=== PATIENT | female | born 1985 | race Caucasian/White ===

== ENCOUNTER 2016-06-20 | Inpatient (IN) | payer BC ==
--- OUTSIDE RECORDS SUMMARY | 2016-06-20 00:03 | XMS REPORT | Continuity of Care Document ---
:1985 Author Organization [facility] ([facility]) Address [address] [place] [id number] Phone [phone] Care Team Providers Name Role Phone Provider, No-Primary Care Primary Care Provider Unavailable Source Comments This disclosure is being made pursuant to the Care Everywhere program, applicable federal and state laws, and may not contain all informaitonavailable regarding this patient.[facility] ([facility]) Active Allergies and Adverse Reactions No Known Allergies Current Medications Prescription Sig. Disp. 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 Family history of intellectual disabilities 03/07/2016 Overview: Affecting males in partner's family Currently Estimated Date of Delivery Comments Yes 06/15/2016 Based on Last Menstrual Period Most Recent Encounters Date Type Specialty Providers Description 04/17/2016 Hospital Encounter Pediatric Marissa, Chief Comp: Patient Nephrology MD Manisha Reported Reason For Visit 04/17/2016 Office Visit Maternal Flor Watts I, Chief Comp: Patient Medicine Reported Reason For Visit 04/17/2016 Hospital Encounter Obstetrics Flor Watts I, Dx: renal anomaly, single gestation 04/17/2016 Telephone Gynecology José Miguel Galvan MD Chief Comp: Appointment Info Social History Tobacco Use Types Packs/Day Years Used Date Never Smoker Smokeless Tobacco: Never Used Alcohol Use Drinks/Week oz/Week Comments No Last Filed Vital Signs Vital Sign Reading Time Taken Blood Pressure 129/69 02/21/2016 9:27 AM CONTINUOUS IMPROVEMENT ANALYST Pulse 86 02/21/2016 9:27 AM CONTINUOUS IMPROVEMENT ANALYST Temperature 36.5 C (97.7 F) 02/21/2016 8:39 AM CONTINUOUS IMPROVEMENT ANALYST Respiratory Rate - - Height 1.676 m (5' 6") 02/21/2016 9:27 AM CONTINUOUS IMPROVEMENT ANALYST Weight 96.2 kg (212 lb 1.3 oz) 02/21/2016 9:27 AM CONTINUOUS IMPROVEMENT ANALYST Body Mass Index 34.25 02/21/2016 9:27 AM CONTINUOUS IMPROVEMENT ANALYST Oxygen Saturation - - Plan of Care Health Maintenance Due Date Last Done Comments Hepatitis B Vaccine (1 of 3 - Primary Series) 1985 Tdap Vaccine 02/11/1996 Lipid Disorder Screening 2003 MMR Vaccine 2003 Td Vaccine 2003 Varicella Vaccine (1 of 2 - Adult - No Evidence of 2003 Immunity) Cervical Cancer Screening 2015 Influenza Vaccine: Seasonal (Season Ended) 2016 Results from Last 3 Months ASBESTOS WIRE FINISHER/ DIAGNOSIS ULTRASOUND (04/17/2016 11:40 AM) Narrative Obstetric Ultrasound Report Limited Scan Referral from: Dr. Judy reyes [facility] [address] Department of Obstetrics & Gynecology [place], [id number] [id number] OB Clinic IVF/ Endocrine PATIENT INFORMATION: Name: ANKITA BELTRE#: [id number] Age:31 y/oExam Date: 04/17/2016 :1985Visit #: 2 LMP:09/09/2015 Location: Diagnosis & Treatment Unit # Fetuses: 1 INDICATION:Left pelvic kidney. Negative integrated screen. Check growth. DATING: Assigned GA GA by LMPGA by US (ARLET)ARLET 31 7 wks 31 4/7 wks 31 4/7 wks 06/15/16 BIOMETRY: BPD: 82.2 mm33 0/7 wksHC:301.6 mm 33 3/7 wks(59%) (69%) Femur: 57.0 mm29 6/7 wksAC:292.1 mm 33 1/7 wks(77%) (20%) EFW: 1936 gms4 lbs 4 oz (69%) Lat Ventricles: 7.1 mm Heart Rate: 144 bpm FL/AC:0.2FL/BPD: 0.69 Left Kidney:[id number] PRESENTATION/CORD/PLACENTA/FLUID/CERVIX: Presentation: Oblique Placenta: Posterior.There Is No Evidence Of Placenta Previa. Amniotic Fluid: Maximum Vertical Pocket=52 mm.Subjective AF Volume : Normal. (ZWE=311 mm) ANATOMICAL SURVEY: Normal (A full anatomical exam was previously performed.) Lateral Ventricles Four Chamber View Cardiac Redfield Cardiac Position Heart Rate Diaphragm StomachKidney - Right Bladder Abnormal -------- Kidney - Left (PELVIC) EFW Summary Table Exam DateFetus #EFW Percentile ------ - 04/17/16 [id number] % 41129 % AMNIOTIC FLUID VOLUME: NORMALTotal JESSIKA: 179 mm.Subjective AF Volume: Normal. Maximum Vertical Pocket:52 mm COMMENTS: I attest to having personally viewed the images and my comments and impression are as follows: The exam was limited to growth, fluid, and limited anatomy. IUP consistent with given ARLET. Left pelvic kidney again noted. Appropriate amniotic fluid. The patient declined appointment with Peds Nephrology. These stable findings were discussed with Ankita. No follow up indicated. Thank you for the opportunity to participate in your patient's care. Dr. Flor Watts MD ([id number]) Dr. Taylor Valverde MD Hot Die Press Feeder 1: Sarah Madison RDMS, RVT Hot Die Press Feeder 2: Natalie Friend RDMS Procedure Note Pool, Incoming Imaging Results - SatApr 17, 2016 11:43 AM CONTINUOUS IMPROVEMENT ANALYST Obstetric Ultrasound Report Limited Scan Referral from: Dr. Judy reyes [facility] [address] Department of Obstetrics &[place] [address] [address] [place], [id number] OB Clinic IVF/ Endocrine PATIENT INFORMATION: Name: ANKITA KAPLAN MR#: [id number] Age: 31 y/o Exam Date: 04/17/2016 : 1985 Visit #: 2 LMP: 09/09/2015 Location: Diagnosis & Treatment Unit # Fetuses: 1 INDICATION: Left pelvic kidney. Negative integrated screen. Check growth. DATING: Assigned GA GA by LMP GA by US (ARLET) ARLET 31 4/7 wks 31 4/7 wks 31 4/7 wks 06/15/16 BIOMETRY: BPD: 82.2 mm 33 0/7 wks HC: 301.6 mm 33 3/7 wks(59%) (69%) Femur: 57.0 mm 29 6/7 wks AC: 292.1 mm 33 1/7 wks(77%) (20%) EFW: 1936 gms 4 lbs 4 oz (69%) Lat Ventricles: 7.1 mm Heart Rate: 144 bpm FL/AC: 0.2 FL/BPD: 0.69 Left Kidney: [id number] PRESENTATION/CORD/PLACENTA/FLUID/CERVIX: Presentation: Oblique Placenta: Posterior. There Is No Evidence Of Placenta Previa. Amniotic Fluid: Maximum Vertical Pocket=52 mm. Subjective AFVolume: Normal. (QRD=405 mm) ANATOMICAL SURVEY: Normal (A full anatomical exam was previously performed.) Lateral Ventricles Four Chamber View Cardiac Redfield Cardiac Position Heart Rate Diaphragm Stomach Kidney - Right Bladder Abnormal -------- Kidney - Left (PELVIC) EFW Summary Table Exam Date Fetus # EFW Percentile --------- ------- ---- 04/17/16 1 1935 69 % 02/21/16 1 636 56 % AMNIOTIC FLUID VOLUME: NORMAL Total JESSIKA: 179 mm. Subjective AF Volume: Normal. Maximum Vertical Pocket: 52 mm COMMENTS: I attest to having personally viewed the images and my comments and impression are as follows: The exam was limited to growth, fluid, and limited anatomy. IUP consistent with given ARLET. Left pelvic kidney again noted. Appropriate amniotic fluid. The patient declined appointment with Peds Nephrology. These stable findings were discussed with Ankita. No followup indicated. Thank you for the opportunity to participate in your patient's care. Dr. Flor Watts MD ([id number]) Dr. Taylor Valverde MD Hot Die Press Feeder 1: Sarah Madison RDMS, RVT Hot Die Press Feeder 2: Natalie Friend RDMS
[2016-06-20] MEDS ORDERED: LIDOCAINE HCL 50 ML VIAL PERI PRN (00:52)
[2016-06-20] MEDS ORDERED: MISOPROSTOL 100 MCG TABLET VG PRN (00:52)
[2016-06-20] MEDS ORDERED: RINGERS SOLUTION,LACTATED 1,000 ML IV ONE (00:52)
[2016-06-20] MEDS ORDERED: OXYTOCIN/DEXTROSE 5%-WATER 30 UNITS/500 ML BAG IV ONE (00:52)
[2016-06-20] MEDS ORDERED: ONDANSETRON HCL/PF 2 MG/ML VIAL IV PRN ×2 (00:52→19:53)
--- NOTE | 2016-06-20 07:44 | PN ---
Progess Note - Interim Narrative: 06/20/16 07:42 Patient rating her contractions as moderate Vital signs stable. Pitocin at 3 mu/min. FHT: 120 baseline, reassuring Contractions q 2-3 min Cervix: 2/75/-2, AROM-clear Impression: Intrauterine at 40 5/7 weeks. Induction of labor for postdates Plan: Continue present plan
[2016-06-20] MEDS ORDERED: BUPIVACAINE HCL/0.9 % NACL/PF 250 ML EP PRN (08:23)
--- NOTE | 2016-06-20 08:23 | OR ---
Anesthesia Pre Procedure Eval Date of Service: 06/20/16 Pre Procedure Evaluation: Last Vital Signs Temp 36.2 C L 08/25/15 10:55 Pulse Resp BP 105/70 08/25/15 12:45 Pulse Ox Anesthesia Pre Procedure Evaluation Heart Rate:67 Blood Pressure:116/79 Termperature:36.8 Respiratory Rate:72 SaO2:98 DATE: 06/20/2016 TIME: 09 30 INDICATIONS: Active labor, labor pain PAST MEDICAL HISTORY: Primipara patient in active labor requesting labor analgesia EXAM: Heart regular; lungs clear ASSESSMENT OF MEDICAL STATUS: Appropriate candidate for labor analgesia PLANNED PROCEDURE: Combination spinal epidural for labor analgesia Home Medications: HOME MEDICATIONS Ferrous Sulfate [Iron] 325 mg PO DAILY 06/15/16 [Last Taken 06/15/16] Vit#96/Ferrous Fum/FA [ S] 1 tab PO DAILY 06/15/16 [Last Taken 06/15/16] Cholecalciferol (Vitamin D3) [Vitamin D3] 1,000 unit PO DAILY 06/20/16 [Last Taken 06/15/16]
[2016-06-20] MEDS ORDERED: fentaNYL CITRATE/PF 50 MCG/ML AMPUL IT SCH (08:30)
--- NOTE | 2016-06-20 08:43 | OR ---
Anesthesia Procedure Note - Anesthesia Procedure Note Date of Service: 06/20/16 Narrative: Vital Signs - Last Taken Temp 36.2 C L 08/25/15 10:55 Pulse Resp BP 105/70 08/25/15 12:45 Pulse Ox 06/20/16 08:42 ANESTHESIA PROCEDURE NOTE Date of Procedure: 06/20/2016 Time of procedure: 09 30. Performed by: AKIL Chambers CRNA, MSN Casino Cashier: Mei Grubbs RN. Preprocedure diagnosis: Active labor, labor pain. Post procedure diagnosis: Same. Procedure: Labor Epidural Placement L3 4. Indications: Labor pain. Findings: See below. Details of the procedure: The patient was placed on the side of the bed in sitting position. The patient was prepped with DuraPrep and draped in a sterile fashion. Lidocaine 1% was infiltrated to the skin and subcutaneous tissues at the level of the L3 4 interspace. The epidural space was identified using a 18-gauge Tuohy needle with llql-le-ntzuvftgyy technique. Fentanyl 20 g was given intrathecally the intrathecal needle was then removed and the epidural catheter was threaded approximately 4 cm, the epidural needle was then removed, and after careful aspiration 3 mL of 1.5% lidocaine with 1-200,000 epinephrine was injected without change in maternal heart rate or sensorium. The catheter was then taped in place. EBL: Minimal. Fluids: N/A. Specimen: N/A. Post procedure condition: The patient tolerated the procedure well with good relief. No complications were noted. Thank you for this consultation. Doug Tripp CRNA, ARNP, MSN
[2016-06-20] MEDS: DEXTROSE 5%-LACTATED RINGERS 1,000 ML IV PRN ×2 (08:50→12:45)
[2016-06-20] MEDS ORDERED: OXYTOCIN 20 UNITS in RINGERS SOLUTION,LACTATED 1,000 ML IV ONE (18:01)
[2016-06-20] MEDS ORDERED: ceFAZolin SODIUM/DEXTROSE,ISO 2 GM/50 ML BAG IV ONE (18:01)
--- NOTE | 2016-06-20 18:15 | PN ---
Jai Note - Interim Narrative: 06/20/16 18:12 Indication: Maternal exhaustion Pre Procedure Patient was counseled to the risk, benefits, and alternatives to operative vaginal delivery. All questions were answered. Patient consented to proceed with operative vaginal delivery. heart rate interpretation: Baseline 120, reassuring variability with occasional variable/late decelerations, EFW 3900 g, station +2, Position of head CELSO, Anesthesia: epidural Cervix was completely dilated and effaced, maternal- size appropriate for application, bladder was emptied, flexion point identified, cup choice appropriate for application site, maternal tissue excluded from vacuum cup Procedure Total application time of the Kiwi Pro with Palm Pump was 120 seconds, maximum vacuum achieved was 500 mm Hg, number of pulls 3, number of involuntary releases 1, vacuum reduced between contractions, minimal advancement in station with each pull, degree of rotation 0-45 Post Procedure Vacuum extraction was unsuccessful. Further attempts were abandoned. The risk , benefits, and alternatives to section were once again discussed with the patient. All questions answered. We'll proceed with primary low transverse section for arrest of descent.
[2016-06-20] MEDS ORDERED: ceFAZolin SODIUM 1 GM VIAL IV ONE (18:35)
[2016-06-20] MEDS ORDERED: DEXTROSE 5%-LACTATED RINGERS 1,000 ML IV ONE (18:58)
[2016-06-20] MEDS ORDERED: BISACODYL 10 MG SUPP.RECT RC PRN (19:53)
[2016-06-20] MEDS ORDERED: oxyCODONE HCL/ACETAMINOPHEN 1 TAB TABLET PO PRN (19:53)
[2016-06-20] MEDS ORDERED: GLYCERIN/WITCH HAZEL LEAF 40 APPL BOX TP PRN (19:53)
[2016-06-20] MEDS ORDERED: SENNOSIDES 8.6 MG TABLET PO PRN (19:53)
[2016-06-20] MEDS ORDERED: SIMETHICONE 80 MG TAB.CHEW PO PRN (19:53)
[2016-06-20] MEDS ORDERED: BENZOCAINE/MENTHOL 81 SPRAY CAN TP PRN (19:53)
--- NOTE | 2016-06-20 20:03 | OR ---
Operative Report - Dictated Report Narrative: Pre Operative Diagnosis: 40 5/7 week intrauterine , arrest of descent Post Operative Diagnosis: Same. Procedure Preformed: Primary Low Transverse Section Surgeon: Júnior Hughes DO Front Office Administrator: None Anesthesia: Epidural ,TAP block Estimated Blood Loss: 600 mL Urine Output: 50 mL of dark urine Fluids Given: 1200 mL of crystalloid Drains: Davenport to gravity Surgical Complications: None Specimens: Placenta to freezer Findings: Male in cephalic presentation born at 1858 on 06/20/2016 with Apgars 9 and 9, weighing 3732 g. Nuchal cord 1. Normal uterus, tubes, ovaries. Indication: This is a 31-year-old 1 para 0 admitted at 40 5/7 weeks for induction of labor post dates. She progressed to complete dilation but after 4 hours of a combination of laboring down and pushing, she failed to bring the fetus past the +2 station. A vacuum assisted vaginal delivery was attempted due to maternal exhaustion, but was unsuccessful after 3 pulls (See separate note for details of attempted vacuum delivery). Technique: The patient was taken to the operating room and placed in dorsal supine position with a left lateral tilt. After adequate epidural anesthesia, davenport catheter insertion,SCDs placed, and 2 g of Ancef given preoperatively, the abdominal cavity was entered via a modified John-Galvan incision. Two rolled laps were placed in the pericolic gutters on either side of the uterus. A transverse incision was made in the lower uterine segment and extended laterally and upwardly with digital traction. Clear fluid was noted upon amniotomy. The infant was delivered easily. The cord was clamped and cut and infant was handed off to awaiting peditrician. The placenta was allowed to deliver spontaneously. The uterus was cleared of clot and debris. Uterine incision was closed with 0 Vicryl using a running locked stitch. A second imbricating layer was placed. Excellent hemostasis was noted. Rolled laps were removed from the abdominal cavitiy. The peritoneum was closed with a running 3-0 Monocryl. The same suture was used to approximate the rectus and pyramidalis muscles. The fascia was closed with a running 0 Vicryl. The subcutaneous layer was closed with a running 3-0 Monocryl. The same suture was used to approximate the subdermal layer. The skin was closed with a running 4- 0 Monocryl and Dermabond. Sponge, lap, needle, and instrument count were correct x 2. Disposition: The patient was transferred to post anesthesia care unit in good condition
[2016-06-20] MEDS: DOCUSATE SODIUM 100 MG CAPSULE PO SCH (21:28)
[2016-06-20] MEDS: oxyCODONE HCL/ACETAMINOPHEN 1 TAB TABLET PO PRN (21:28)
[2016-06-20] MEDS: IBUPROFEN 800 MG TABLET PO PRN (22:00)
[2016-06-21] MEDS: oxyCODONE HCL/ACETAMINOPHEN 1 TAB TABLET PO PRN ×5 (05:09→23:10)
[2016-06-21] MEDS: DOCUSATE SODIUM 100 MG CAPSULE PO SCH ×2 (08:35→21:16)
[2016-06-21] MEDS: ENOXAPARIN SODIUM 40 MG/0.4 ML SYRG SC SCH (08:36)
--- NOTE | 2016-06-21 08:51 | PN ---
Subjective - Date and Time Seen Date: 06/21/16 Time: 08:50 Objective - Vitals Vitals: Last Vital Signs Temp 36.6 C 06/21/16 07:38 Pulse 78 06/21/16 07:38 Resp 16 06/21/16 07:38 BP 120/71 06/21/16 07:38 Pulse Ox 99 06/21/16 07:38 Patient denies complaints. Tolerating regular diet. Ambulating without difficulty. Pain well controlled. Lochia wnl. Abdomen - soft, appropriately tender Incision - clean, dry, intact Uterus - firm, at umbilicus -1 No calf tenderness Impression: Post op day #1 s/p primary section. Plan: Continue routine post-operative/ care Cauti Physician Documentation - Urinary Catheter Management Urethral (Richard) Date of Removal: 06/21/16 Time of Removal: 07:00
[2016-06-21] MEDS: IBUPROFEN 800 MG TABLET PO PRN ×2 (11:16→23:11)
[2016-06-22] MEDS: oxyCODONE HCL/ACETAMINOPHEN 1 TAB TABLET PO PRN ×4 (03:07→20:06)
[2016-06-22] MEDS ORDERED: ENOXAPARIN SODIUM 40 MG/0.4 ML SYRG SC SCH (05:00)
[2016-06-22] MEDS: IBUPROFEN 800 MG TABLET PO PRN ×3 (07:56→20:07)
--- NOTE | 2016-06-22 07:57 | PN ---
Subjective - Date and Time Seen Date: 06/22/16 Time: 07:56 Objective - Vitals Vitals: Last Vital Signs Temp 36.7 C 06/22/16 07:32 Pulse 85 06/22/16 07:32 Resp 18 06/22/16 07:32 BP 118/70 06/22/16 07:32 Pulse Ox 98 06/22/16 07:32 Patient denies complaints. Ambulating well. Tolerating regular diet. Pain well controlled. Lochia wnl. Abdomen - soft, appropriately tender Incision - clean, dry, intact Uterus - firm, at umbilicus -2 No calf tenderness Impression: Post op day #2 s/p primary section. Plan: Continue routine post-operative/ care Cauti Physician Documentation - Urinary Catheter Management Urethral (Richard) Date of Removal: 06/21/16 Time of Removal: 07:00
[2016-06-22] MEDS: ENOXAPARIN SODIUM 40 MG/0.4 ML SYRG SC SCH (08:27)
[2016-06-22] MEDS: DOCUSATE SODIUM 100 MG CAPSULE PO SCH ×2 (08:27→20:07)
[2016-06-23] MEDS: oxyCODONE HCL/ACETAMINOPHEN 1 TAB TABLET PO PRN ×2 (02:50→09:15)
[2016-06-23] MEDS: IBUPROFEN 800 MG TABLET PO PRN ×2 (02:51→09:15)
[2016-06-23 07:58] VITALS: BP 121/72
[2016-06-23] MEDS: DOCUSATE SODIUM 100 MG CAPSULE PO SCH (09:15)
[2016-06-23] MEDS: ENOXAPARIN SODIUM 40 MG/0.4 ML SYRG SC SCH (09:15)
--- NOTE | 2016-06-23 13:30 | PN ---
Subjective - Date and Time Seen Date: 06/23/16 Time: 13:29 Objective - Vitals Vitals: Last Vital Signs Temp 36.6 C 06/23/16 07:27 Pulse 83 06/23/16 07:27 Resp 18 06/23/16 07:27 BP 121/72 06/23/16 07:27 Pulse Ox 97 06/22/16 15:10 Patient denies complaints. Ambulating without difficulty. Tolerating regular diet. Pain well controlled. Lochia wnl. Abdomen - soft, appropriately tender Incision - clean, dry, intact Uterus - firm, at umbilicus -3 No calf tenderness Impression: Post op day #3 s/p primary section. Plan: Routine discharge instructions Cauti Physician Documentation - Urinary Catheter Management Urethral (Richard) Date of Removal: 06/21/16 Time of Removal: 07:00
== END 2016-06-23 13:35 | disposition home or self-care (01) | DRG 766 ==
LOC: OB
PROVIDERS: ADMIT Obstetrics & Gynecology; ATTEND Obstetrics & Gynecology
PROC: 3E033VJ Introduction of Other Hormone into Peripheral Vein, Percutaneous Approach (ICD-10-PCS; 2016-06-20)
PROC: 10907ZC Drainage of Amniotic Fluid, Therapeutic from Products of Conception, Via Natural or Artificial Opening (ICD-10-PCS; 2016-06-20)
PROC: 4A1HXCZ Monitoring of Products of Conception, Cardiac Rate, External Approach (ICD-10-PCS; 2016-06-20)
PROC: 10D00Z1 Extraction of Products of Conception, Low, Open Approach (ICD-10-PCS; principal; 2016-06-20 18:27)
DX: O62.0 Primary inadequate contractions (principal); O69.81X0 Labor and delivery complicated by cord around neck, without compression, not applicable or unspecified; O66.5 Attempted application of vacuum extractor and forceps; O75.81 Maternal exhaustion complicating labor and delivery; Z3A.41 41 weeks gestation of pregnancy; Z37.0 Single live birth

== ENCOUNTER 2018-05-27 05:57 | Inpatient (IN) ==
--- NOTE | 2018-05-26 13:29 | HP ---
Chief Complaint - Chief Complaint Date of Service: 05/22/18 Time of Service: 11:00 Chief Complaint: RLTCS History of Present Illness: 33 yo presents at 39 4/7 weeks to L&D for scheduled repeat c/s on 05/27/18. This complicated by prior c/s, fall in late 2nd trimester. Rh positive Rubella immune GBS negative Medical History (Updated 04/03/18 @ 19:36 by Shar Hughes DO) Anemia (Acute) with Endometriosis determined by laparoscopy (Chronic) Onset Date: 09/05/16 Delivery by section of full-term (Chronic) Unspecified mood [affective] disorder Onset Date: Unknown Anemia affecting Onset Date: 04/04/16 Infertility counseling Onset Date: 04/05/15 Infertility, female Onset Date: 04/05/15 Ovarian cyst Onset Date: 05/12/15 Surgical History: Surgical History (Updated 04/03/18 @ 19:36 by Shar Hughes DO) H/O ovarian cystectomy Onset Date: 08/25/15 History of placement of ear tubes Onset Date: Unknown History of tonsillectomy and adenoidectomy Onset Date: Unknown Hx of section Onset Date: 06/20/16 Arrest of descent Family History: Family History (Updated 11/12/17 @ 13:29 by Eva Clark RN) Mother Breast cancer Grandmother CVA (cerebral vascular accident) Heart disease Osteoporosis Hypertension Grandfather Heart disease Grandmother Ovarian cancer paternal Social History: Preferred Language Upper Sorbian Smoking Status Never smoker Abuse History No History of abuse Psych History No pertinent hx (Last Updated 05/14/18 @ 10:43 by Shar Hughes DO) No Social History Section defined Review Of Systems (GEN) - Review of Systems Generalized/Overall Review: Present: No Symptoms Reported EENTM: Present: No Symptoms Reported Respiratory: Present: No Symptoms Reported Cardiac: Present: No Symptoms Reported Abdominal: Present: No Symptoms Reported Genitourinary: Present: No Symptoms Reported Musculoskeletal: Present: No Symptoms Reported Neurological: Present: No Symptoms Reported Skin: Present: No Symptoms Reported Endocrine: Present: No Symptoms Reported Allergies/Adverse Reactions: Allergies Allergy/AdvReac Type Severity Reaction Status Date / Time No Known Allergies Allergy Verified 05/22/18 08:55 Home Medications: HOME MEDICATIONS Vits96/Iron Fum/Folic [ S] 1 tab PO DAILY 06/15/16 [Last Taken 06/15/16] ferrous sulfate 325 mg (65 mg iron) tablet,delayed release 325 mg PO DAILY #30 tab 02/28/18 [Last Taken Unknown] ascorbic acid (vitamin C) 500 mg capsule 500 mg PO DAILY cap 03/13/18 [Last Taken Unknown] breast pump See Dose Instructions .ROUTE .MEDSUPPLY #1 ea 04/02/18 [Last Taken Unknown] Exam - Exam Vital Signs: BP 110/82 wt 103.9 kg ht 1.68 m p 86 R 16 T 36.9 C Constitutional: Present: Alert, Oriented x3, Cooperative ENT Exam: Present: hearing grossly normal Breasts: Present: Exam deferred Respiratory: Present: lungs clear, no respiratory distress Cardiovascular/Chest: Present: regular rate, rhythm, no edema Abdomen: Present: soft, nontender, no rebound tenderness, other - gravid /Rectal: Present: Exam deferred Extremity: Present: non-tender, no pedal edema, no calf tenderness Skin Exam: Present: normal color, warm/dry, no cyanosis Neurologic: Present: alert, normal mood/affect, oriented x 3 Appearance: Present: appropriate appearance, appropriate insight Eye contact: Present: cooperative, good eye contact Thoughts: Present: normal thought pattern Assessment/Plan - Assessment/Plan (1) Previous delivery affecting , antepartum Problem: Acute (2) Patient is scheduled for surgical procedure Assessment: Admit for RLTCS with possible abdominal scar revision. Routine pre-op orders. Problem: Acute
[2018-05-27] MEDS ORDERED: ceFAZolin SODIUM/DEXTROSE,ISO 2 GM/50 ML BAG IV ONE (06:21)
[2018-05-27] MEDS ORDERED: RINGER'S SOLUTION,LACTATED 1,000 ML IV PRN (06:21)
[2018-05-27] MEDS ORDERED: OXYTOCIN 20 UNITS in RINGER'S SOLUTION,LACTATED 1,000 ML IV ONE (06:21)
[2018-05-27 07:55] LABS: Cocaine Ur Negative (NEGATIVE); Urine Barbiturate Negative (NEGATIVE); Urine Benzodiazepines Negative (NEGATIVE); Urine Opiates Negative (NEGATIVE); Urine PCP Negative (NEGATIVE); Urine THC Negative (NEGATIVE)
[2018-05-27] MEDS: RINGER'S SOLUTION,LACTATED 1,000 ML IV PRN ×2 (07:56→10:40)
--- NOTE | 2018-05-27 08:49 | ANES ---
Anesthesia Pre Procedure Eval Vitals/Labs: Last Vital Signs Temp 36.9 C 05/27/18 07:03 Pulse 89 05/27/18 07:03 Resp 18 05/27/18 07:03 BP 131/74 05/27/18 07:03 Pulse Ox 97 05/27/18 07:03 HOME MEDICATIONS Vits96/Iron Fum/Folic [ S] 1 tab PO DAILY 06/15/16 [Last Taken 05/26/18] ferrous sulfate 325 mg (65 mg iron) tablet,delayed release 325 mg PO DAILY #30 tab 02/28/18 [Last Taken 05/25/18] ascorbic acid (vitamin C) 500 mg capsule 500 mg PO DAILY cap 03/13/18 [Last Taken 05/25/18] breast pump See Dose Instructions .ROUTE .MEDSUPPLY #1 ea 04/02/18 [Last Taken Unknown] Allergies/Adverse Reactions: Allergies Allergy/AdvReac Type Severity Reaction Status Date / Time No Known Allergies Allergy Verified 05/22/18 08:55 - Planned Procedure Planned Procedure: Rpt /c pos abd scar revsn Exc mole chest Medication List Reviewed:: Yes Allergies Verified: Yes Medical History (Updated 05/26/18 @ 13:29 by Shar Hughes DO) Anemia (Acute) with Endometriosis determined by laparoscopy (Chronic) Onset Date: 09/05/16 Delivery by section of full-term infant (Chronic) Unspecified mood [affective] disorder Onset Date: Unknown Anemia affecting Onset Date: 04/04/16 Infertility counseling Onset Date: 04/05/15 Infertility, female Onset Date: 04/05/15 Ovarian cyst Onset Date: 05/12/15 Surgical History (Updated 04/03/18 @ 19:36 by Shar Hughes DO) H/O ovarian cystectomy Onset Date: 08/25/15 History of placement of ear tubes Onset Date: Unknown History of tonsillectomy and adenoidectomy Onset Date: Unknown Hx of section Onset Date: 06/20/16 Arrest of descent Family History (Updated 11/12/17 @ 13:29 by Eva Clark RN) Mother Breast cancer Grandmother CVA (cerebral vascular accident) Heart disease Osteoporosis Hypertension Grandfather Heart disease Grandmother Ovarian cancer paternal - Family Anesthesia History Family History:: no untoward family reactions to anesthesia, no familial bleeding tendencies, no family history of clotting disorders, no family history of premature - Airway/Neck/Teeth Within Normal Limits:: Yes Teeth Condition: intact Mallampatti Score: 2 Thyromental (T-M) distance: > 6 cm Mandibulo Hyoid distance: > 3 cm - Respiratory Respiratory Physical: lungs clear Smoking Status: Never smoker Discussed smoking cessation including day of surgery: No Sleep Apnea currently treated: No Sleep Apnea by current assessment: No Discussed Risks/Treatment of JANNETH: No - Cardiovascular Tolerate Activity: Good Heart Sounds: S1 & S2, Regular - Anesthesia Assessment and Plan ASA Class: PS, II Anesthesia Type Plan: Block - Bilateral ultrasound guided TAP blocks for postop analgesia, Spinal
[2018-05-27] MEDS ORDERED: ONDANSETRON HCL/PF 2 MG/ML VIAL IV PRN (10:43)
[2018-05-27] MEDS ORDERED: SENNOSIDES 8.6 MG TABLET PO PRN (10:43)
[2018-05-27] MEDS ORDERED: oxyCODONE HCL/ACETAMINOPHEN 1 TAB TABLET PO PRN (10:43)
[2018-05-27] MEDS ORDERED: SIMETHICONE 80 MG TAB.CHEW PO PRN (10:43)
[2018-05-27] MEDS ORDERED: BISACODYL 10 MG SUPP.RECT RC PRN (10:43)
--- NOTE | 2018-05-27 10:48 | ANES ---
Anesthesia Procedure Note Procedure Note: ANESTHESIA PROCEDURE NOTE Date of Procedure: 05/27/2018. Time of procedure: 1035. Performed by: Wilver Baez CRNA Community Development Planner: None. Preprocedure diagnosis: Repeat section. Post procedure diagnosis: Same. Procedure: Bilateral ultrasound-guided transversus abdominis plane block for pos top analgesia. Indications: The patient is a 33 -year-old female post section. Findings: See below. Details of the procedure: ChloraPrep was used on the patient's abdomen and the procedure was performed under sterile technique. The right abdominal fascial layer between the internal oblique muscle and the transversus abdominis muscles was identified under ultrasound guidance. A 21-gauge 4 inch block needle was inserted under ultrasound guidance to the target fascial plane. 15 mL's of 0.5% bupivacaine plus epinephrine 1:200,000 was injected after negative aspiration for blood. The needle was removed intact and the procedure was then repeated at the left side. No complications were noted. The images were retained in the hospital medical database . EBL: Minimal. Fluids: N/A. Specimen: N/A. Post procedure condition: The patient tolerated the procedure well. No complications were noted. Thank you for this consultation. Wilver Baez CRNA
--- NOTE | 2018-05-27 10:49 | ANES ---
Post Anesthesia Discharge - Transfer of Care Transfer of Care handoff given to nurse: Yes - Discharge from PACU Discharge from PACU when meets criteria: Yes - Discharge to ASU Discharge to ASU-no complications/pt stable: Yes
[2018-05-27] MEDS: oxyCODONE HCL/ACETAMINOPHEN 1 TAB TABLET PO PRN ×3 (11:00→23:53)
[2018-05-27] MEDS: IBUPROFEN 800 MG TABLET PO PRN ×3 (11:00→23:53)
--- NOTE | 2018-05-27 11:02 | OR ---
Operative Report - Dictated Report Narrative: Indication: 33-year-old 2 para 1 with prior section desires repeat section. Patient also has a persistent hemorrhagic nevi on left chest wall she would like removed at the time of the surgery (2 prior attempts to freeze the lesion with liquid Nitrogen - last time was 5 days ago). status: Planned Pre Operative Diagnosis: 39-4/7 week intrauterine . Prior section. Hemorrhagicum nevi. Post Operative Diagnosis: Same. Procedure: Repeat low transverse section. Excision of hemorrhagic nevi on left chest wall. 1.5 cm Surgeon: Júnior Hughes DO Architect Intern: OR Staff Anesthesia: Spinal, TAP block, 1% lidocaine with epinephrine local for skin lesion Estimated Blood Loss: 400 mL Urine Output: 125 mL clear urine Fluids Replacement: 1700 mL of crystalloid Drains: Davenport to gravity Surgical Complications: None Specimens: Placenta to freezer. Chest lesion to pathology Findings: Male born at 0925 on 05/27/2018 in cephalic presentation with Apgars 9 and 9, weighing 4213 g. Normal uterus, tubes, ovaries. 4-5 mm hemorrhagic nevi on left chest wall. Technique: The patient was taken to the operating room and placed in dorsal supine position with a left lateral tilt. After adequate spinal anesthesia, davenport catheter inserted, SCDs placed, and 2 g of Ancef given preoperatively, the abdominal cavity was entered through the previous scar using sharp and blunt dissection. The uterine serosa was scored with the scalpel and the bladder flap was gently retracted from the lower uterine segment. A transverse incision was made in the lower uterine segment and extended laterally and upwardly with digital traction. Clear fluid was noted upon amniotomy. The was delivered in cephalic presentation. Loose nuchal cord was easily reduced. The cord was clamped and cut and infant was handed off to awaiting public health staff nurse. The placenta was allowed to deliver spontaneously. The uterus was cleared of clot and debris. Uterine incision was closed with 0 Vicryl using a running sti tch. A second imbricating layer was placed. Excellent hemostasis was noted. The peritoneum was closed with a running 3-0 Monocryl. The same suture was used to approximate the rectus and pyramidalis muscles. The fascia was closed with a running 0 Vicryl. The subcutaneous layer was closed with a running 3-0 Monocryl. The same suture was used to approximate the subdermal layer. The skin was closed with a running 4-0 Monocryl and Dermabond. Attention was turned to the anterior chest wall. The skin was prepped prior to draping with DuraPrep and reprepped with Betadine. After placing sterile drapes, the skin was injected with 2 mL of 1% lidocaine with epinephrine. Using a 15 blade, an elliptical incision was made around the lesion. Specimen was sent to pathology. Bleeding was controlled with cautery. 3 interrupted sutures were placed using 4-0 Monocryl and the incision was covered with a Mepilex bandage. Sponge, lap, needle, and instrument count were correct x 2. Disposition: To post anesthesia care unit in good condition History for MU Definition: * The number of deliveries resulting in a live the patient experienced prior to current hospitalization * The previous delivery of live twins or any live multiple gestation is considered one live event. *If primagravida or nulliparous is documented select zero for the number of previous live births. Live Events: 1
--- NOTE | 2018-05-27 11:02 | ANES ---
Post Anesthesia Assessment - Vital Signs Vitals: Last Vital Signs Temp 36.1 C 05/27/18 10:25 Pulse 86 05/27/18 10:40 Resp 16 05/27/18 10:40 BP 138/65 05/27/18 10:40 Pulse Ox 98 05/27/18 10:40 Airway Patency: Normal - Mental Status Level Of Consciousness: Awake - Pain Level Pain Score: 0 - N/V Assessment Nausea/Vomiting Presence: None Dehydration:: No
[2018-05-27] MEDS ORDERED: DOCUSATE SODIUM 100 MG CAPSULE ONE (19:51)
[2018-05-27] MEDS: DOCUSATE SODIUM 100 MG CAPSULE PO SCH ×2 (19:52→23:43)
[2018-05-28] MEDS: oxyCODONE HCL/ACETAMINOPHEN 1 TAB TABLET PO PRN ×2 (04:43→20:44)
[2018-05-28] MEDS: IBUPROFEN 800 MG TABLET PO PRN ×3 (07:40→20:44)
[2018-05-28] MEDS: DOCUSATE SODIUM 100 MG CAPSULE PO SCH ×2 (10:56→20:43)
--- NOTE | 2018-05-28 14:14 | PN ---
Subjective - Date and Time Seen Date: 05/28/18 Time: 14:13 Objective - Vitals Vitals: Last Vital Signs Temp 37 C 05/28/18 11:00 Pulse 85 05/28/18 11:00 Resp 20 05/28/18 11:00 BP 118/61 05/28/18 11:00 Pulse Ox 97 05/28/18 11:00 Patient denies complaints. Tolerating regular diet. Ambulating without difficulty. Pain well controlled. Breast feeding well Lochia wnl. Abdomen - soft, appropriately tender Incision - clean, dry, intact Uterus - firm, at umbilicus -1 No calf tenderness Impression: Post op day #1 s/p repeat section. Excision of hemorrhagic nevi Plan: Continue routine post-operative/ care Cauti Physician Documentation - Urinary Catheter Management Urethral (Richard) Date of Insertion: 05/27/18 Time of Insertion: 09:05 Date of Removal: 05/27/18 Time of Removal: 22:15 Assessment/Plan - Problems/Diagnosis (1) Previous delivery affecting , antepartum Problem: Acute (2) Patient is scheduled for surgical procedure Problem: Acute
[2018-05-29] MEDS: IBUPROFEN 800 MG TABLET PO PRN (05:18)
[2018-05-29] MEDS: DOCUSATE SODIUM 100 MG CAPSULE PO SCH (09:44)
[2018-05-29 12:38] VITALS: BP 128/84
--- NOTE | 2018-05-29 13:05 | PN ---
Subjective - Date and Time Seen Date: 05/29/18 Time: 13:04 Objective - Vitals Vitals: Last Vital Signs Temp 36.9 C 05/29/18 12:37 Pulse 90 05/29/18 12:37 Resp 18 05/29/18 12:37 BP 128/84 05/29/18 12:37 Pulse Ox 96 05/29/18 12:37 Patient denies complaints. Ambulating well. Tolerating regular diet. Pain well controlled. Desires early discharge. Lochia wnl. Abdomen - soft, appropriately tender Incision - clean, dry, intact Uterus - firm, at umbilicus -2 No calf tenderness Impression: Post op day #2 s/p repeat section. Excision of chest wall hemangioma Plan: Continue routine post-operative/ care. Routine discharge instructions. Follow-up in 2 weeks. Cauti Physician Documentation - Urinary Catheter Management Urethral (Richard) Date of Insertion: 05/27/18 Time of Insertion: 09:05 Date of Removal: 05/27/18 Time of Removal: 22:15 Assessment/Plan - Problems/Diagnosis (1) Previous delivery affecting , antepartum Problem: Acute (2) Patient is scheduled for surgical procedure Problem: Acute
[2018-05-29] MEDS: oxyCODONE HCL/ACETAMINOPHEN 1 TAB TABLET PO PRN (13:26)
== END 2018-05-29 13:35 | disposition home or self-care (01) | DRG 788 ==
LOC: OB 05:57
PROVIDERS: ADMIT Obstetrics & Gynecology; ATTEND Obstetrics & Gynecology
CPT/HCPCS: 59025; 80307; 88305